=== PATIENT | male | born 1970 | race African-American/Black ===

== ENCOUNTER 2017-05-10 06:29 | Emergency (ER) | payer BC, OTHER ==
[~2017-05-10] VITALS: Ht 177.8 cm; Wt 115.7 kg
[~2017-05-10 06:29] MED LIST: AUGMENTIN 875875 M1; ENBREL 25 MG KI25 M1; FOLIC ACID1 MG; IBUPROFEN 800800 M1; METHOTREXATE 22.5 MG; NORCO 5-325 TA1 EACH PO; SULFAZINE EC500 MG
[2017-05-10] MEDS ORDERED: DHEA50 M1 PO (06:43)
[2017-05-10] MEDS ORDERED: NEURONTIN300 MG PO ×2 (07:11→07:12)
== END 2017-05-10 08:15 | disposition home or self-care (01) ==
LOC: ER 06:29
DX: G61.9 Inflammatory polyneuropathy, unspecified (principal); M19.90 Unspecified osteoarthritis, unspecified site

== ENCOUNTER 2018-12-18 09:22 | Emergency (ER) | payer BC, OTHER ==
[~2018-12-18] VITALS: Ht 177.8 cm; Wt 121.6 kg
[~2018-12-18 09:22] MED LIST changes: +DHEA50 M1 PO; +NEURONTIN300 MG PO
[2018-12-18] MEDS ORDERED: PLAQUENIL200 MG (09:53)
[2018-12-18 12:05] VITALS: BP 142/93
== END 2018-12-18 12:05 | disposition home or self-care (01) ==
LOC: ER 09:22
DX: S93.491A Sprain of other ligament of right ankle, initial encounter (principal); M06.9 Rheumatoid arthritis, unspecified; Z98.890 Other specified postprocedural states; X50.0XXA Overexertion from strenuous movement or load, initial encounter; Y92.89 Other specified places as the place of occurrence of the external cause; Y93.89 Activity, other specified; Y99.8 Other external cause status

== ENCOUNTER → 2020-11-13 | Outpatient (CLI) | payer OTHER ==
[~2020-11-13] MED LIST changes: +PLAQUENIL200 MG
== END ==
LOC: RAD 12:58
PROVIDERS: ATTEND Nurse Practitioner
DX: M19.072 Primary osteoarthritis, left ankle and foot (principal); M25.572 Pain in left ankle and joints of left foot